=== PATIENT | male | born 1980 | race Two or more races ===

== ENCOUNTER 2021-11-17 14:32 | Emergency (ER) | payer OTHER ==
[~2021-11-17] VITALS: Ht 167.6 cm; Wt 85.0 kg
== END 2021-11-17 20:44 | disposition home or self-care (01) ==
LOC: EDBD 14:32 → ED 14:32
DX: S01.81XA Laceration without foreign body of other part of head, initial encounter (principal); Z23 Encounter for immunization; S00.411A Abrasion of right ear, initial encounter; S00.211A Abrasion of right eyelid and periocular area, initial encounter; V59.9XXA Occupant (driver) (passenger) of pick-up truck or van injured in unspecified traffic accident, initial encounter
CPT/HCPCS: 36415; 70450; 71045; 72125; 72128; 72131; 73630; 80053; 85025; 90471; 90715; 96374; 96376; 99284-25; A9270; J2270